=== PATIENT | female | born 1990 | race Caucasian/White ===

== ENCOUNTER 2018-10-27 08:48 | Emergency (ER) | payer OTHER ==
[~2018-10-27] VITALS: Ht 157.5 cm; Wt 52.2 kg
[2018-10-27 09:15] VITALS: BP 119/55
--- NOTE | 2018-10-27 09:15 | NUR ---
PATIENT AMBULATED TO BED 36
--- NOTE | 2018-10-27 09:20 | NUR ---
BIB SELF W C/O INTERMITTENT R EYE PAIN X 1 WEEK, 2/10 DULL & OCCURS WHEN BLINKING AND CAUSES HER TO HAVE A HEADACHE. PT DENIES WEARING GLASSES, VISION CHANGES, PAIN TO TOUCH, USE OF EYEDROPS. DENIES N/V/D; SKIN IS PINK/WARM/DRY; AAOX4 WITH EVEN AND STEADY GAIT; VSS; PATIENT POSITIONED FOR COMFORT; HOB ELEVATED; BEDRAILS UP X1; BED DOWN. ER MD MADE AWARE OF PT STATUS. NO VISIBLE REDNESS OR IRRITATION AT THIS TIME.
--- NOTE | 2018-10-27 10:00 | NUR ---
PT RESTING IN BED, NO NEW NEEDS AT THIS TIME
[2018-10-27 11:06] VITALS: BP 119/55
--- NOTE | 2018-10-27 11:06 | NUR ---
Patient discharged with v/s stable. Written and verbal after care instructions given and explained. Patient alert, oriented and verbalized understanding of instructions. Ambulatory with steady gait. All questions addressed prior to discharge. ID band removed. Patient advised to follow up with PMD. Rx of ketorolac, mtorin given. Patient educated on indication of medication including possible reaction and side effects. Opportunity to ask questions provided and answered.
== END 2018-10-27 11:06 | disposition home or self-care (01) ==
LOC: MED 08:48
DX: B30.9 Viral conjunctivitis, unspecified (principal); Z88.0 Allergy status to penicillin
CPT/HCPCS: 99283